=== PATIENT | female | born 1985 | race Caucasian/White ===

== ENCOUNTER 2024-05-28 01:36 | Emergency (ER) | payer MEDICAID ==
[~2024-05-28] VITALS: Ht 167.6 cm; Wt 75.0 kg
[2024-05-28 01:38] VITALS: O2SAT 99
[2024-05-28 01:46] VITALS: TEMP 36.66960
[2024-05-28] MEDS ORDERED: IBUP-2029 MT (02:22)
[2024-05-28] MEDS ORDERED: CIPHCO LEFT EAR (02:22)
[2024-05-28] MEDS ORDERED: AMOX1TAB16 MT (02:22)
[2024-05-28 03:16] VITALS: BP 134/92; PULSE 69; RESP 16; O2SAT 100
== END 2024-05-28 03:17 | disposition home or self-care (01) ==
LOC: ER 01:51
DX: H60.92 Unspecified otitis externa, left ear (principal); I10 Essential (primary) hypertension; E78.00 Pure hypercholesterolemia, unspecified; E11.9 Type 2 diabetes mellitus without complications
CPT/HCPCS: 99283